=== PATIENT | male | born 1965 | race Caucasian/White ===

== ENCOUNTER 2021-08-23 09:53 | Day surgery (SDC) | payer OTHER, SELFPAY ==
[~2021-08-23] VITALS: Ht 167.6 cm; Wt 106.6 kg
[2021-08-23] MEDS ORDERED: diphenhydrAMINE 50 MG/ML VIAL ONE (12:31)
[2021-08-23] MEDS ORDERED: fentaNYL citrate 0.05 MG/ML VIAL ONE (12:31)
[2021-08-23] MEDS ORDERED: MIDAZOLAM 5 MG/5 ML VIAL ONE (12:32)
[2021-08-23] MEDS: fentaNYL citrate 0.05 MG/ML VIAL IVP ONE (12:38)
[2021-08-23] MEDS: MIDAZOLAM 2 MG/2 ML VIAL IVP ONE (12:39)
== END 2021-08-23 12:00 | disposition home or self-care (01) ==
LOC: MDS 09:53 → MMU 09:53 → MDS 12:00
PROVIDERS: ATTEND Internal Medicine Gastroenterology
DX: Z12.11 Encounter for screening for malignant neoplasm of colon (principal); D12.0 Benign neoplasm of cecum; D12.3 Benign neoplasm of transverse colon; K22.10 Ulcer of esophagus without bleeding; K22.2 Esophageal obstruction; K57.30 Diverticulosis of large intestine without perforation or abscess without bleeding; K44.9 Diaphragmatic hernia without obstruction or gangrene; I10 Essential (primary) hypertension; R13.10 Dysphagia, unspecified; K21.9 Gastro-esophageal reflux disease without esophagitis; E78.5 Hyperlipidemia, unspecified; Z79.899 Other long term (current) drug therapy; Z20.822 Contact with and (suspected) exposure to COVID-19
CPT/HCPCS: 43239; 45385; 87426; J2250; J3010; 88305; 88312; J1200